=== PATIENT | female | born 1960 | race Caucasian/White ===

== ENCOUNTER 2024-06-08 09:02 | Emergency (ER) | payer BC, SELFPAY ==
[2024-06-08 09:07] VITALS: BP 153/71
--- NOTE | 2024-06-08 09:45 | ED.GENMED ---
History of Present Illness
General
Chief Complaint: Chest Pain
Source: patient
Exam Limitations: none
Time Seen by Provider: 06/08/24 09:45
History of Present Illness
History of Present Illness:
64-year-old female woke up at 3 AM with right posterior shoulder pain rating from the neck with a dullness to the right arm. No chest pain shortness of breath abdominal pain. No history of same. No recent trauma. Patient walks regularly without
issues. Pain has been persistent since 3 AM
Past History
Past History
ED Past Medical History: GERD
ED Past Surgical History: Orthopedic
Social History
Tobacco: Non-smoker
Alcohol: Occasional
Personal:
Review of Systems
Review of Systems
All Other Systems: Not applicable
Constitutional: Denies fever
Respiratory: Reports no symptoms
Cardiac: Denies chest pain
ABD/GI: Reports no symptoms
Phy Exam
Physical Exam
Physical Exam:
GENERAL: Alert and oriented in no apparent distress
EYE: Orbits normal.
NECK: Supple, no spinal tenderness. Good range of motion..
CARDIAC: Regular rate and rhythm without any obvious murmurs.
LUNGS: Clear breath sounds,normal
ABDOMEN: Soft, without focal tenderness or distention
NEUROLOGICAL: Alert and oriented , grossly non-focal
SKIN: Warm and dry, no rash or lesion, no discoloration, skin intact.
MUSCULOSKELETAL: No edema,no deformity.Good color. Patient points to the right upper medial posterior trapezius area as the location of her discomfort. However there is no swelling or point tenderness. She has got good chuck splitter of the right arm.
Good distal pulses. Able to abduct flex extend and abduct the right shoulder.
PSYCH: Normal and appropriate interaction.
Scores
Heart Score for Chest Pain Patients
STEMI patient?: No
History: Slightly or Non-Suspicious
ECG: Normal
Age: >45 - <65 years
Risk Factors: No Risk Factors
Troponin: </= Normal Limit
Heart Score for Chest Pain Patients: 1
Heart Score Risk: 2.5% MACE over next 6 weeks
Course
Orders/Labs/Results
Orders:
Orders
06/08/24 09:04
Electrocardiogram (*1) Urgent
Reason for Study: Chest Pain
EKG- Treatment ONCE
06/08/24 09:57
Add On- LAB Urgent
Tests Added?: lipase
CT Chest Angio W/wo Iv Contras Urgent
Comment:
Reason For Exam: Sudden right upper posterior chest pain
06/08/24 09:58
0.9% Sodium Chloride 500 ml [Nss] 500 ml IV BOLUS
06/08/24 09:59
CMP [Comprehensive Metabolic Panel] Urgent
Complete Blood Count/With Diff Urgent
Lipase Urgent
Troponin I Urgent
06/08/24 12:19
US Abdomen Complete/Upper Urgent
Reason For Exam: Upper back pain. History of gallbladder issues
06/08/24 12:28
Ketorolac [Toradol] 15 mg IV NOW STA
Abnormal Lab Results
06/08/24
09:59
Hct 36.9 L %
(37.0-47.0)
Eosinophils % 7.8 H %
(0-6)
Glucose 110 H mg/dl
(70-99)
Total Bilirubin < 0.1 L mg/dl
(0.2-1.3)
06/08/24 09:59
06/08/24 09:59
Vital Signs
Initial and Last Documented VS:
Initial Vital Signs
Temp Pulse Resp BP Pulse Ox
98.4 F 90 18 153/71 99
06/08/24 09:07 06/08/24 09:07 06/08/24 09:07 06/08/24 09:07 06/08/24 09:07
Last Documented Vital Signs
Temp Pulse Resp BP Pulse Ox
98.4 F 67 18 125/76 98
06/08/24 09:07 06/08/24 12:00 06/08/24 12:00 06/08/24 12:00 06/08/24 12:00
MDM/Problems Addressed
Differential Diagnosis Includes:
. Sudden onset of nontraumatic pain to the right upper posterior back. Most suspicious of a radiculopathy although uncertain why this would come on suddenly
Cardiac needs to be ruled out. Clinically very low suspicion. EKG normal. Dissection with sudden onset of upper back pain. CTA pending. Patient mention she had gallbladder issues however she has absolutely no tenderness in the right upper
quadrant. Feel this is very unlikely.
*Radiology
Radiology exam reviewed: radiology read reviewed (Negative CT. Negative ultrasound)
*EKG
Interpreted by ED Provider?: Yes
Interpretation: normal
Comparison EKG: no changes
Heart Rate: 81
Rate: normal
Rhythm: sinus
Interval: normal interval
QRS Pattern: normal QRS
Ischemia: no ischemia
*Critical Care Note
Total Time (30-74mins, 75-104mins- exclusive of procedures): Not Applicable
Update Note
Update Note:
Patient feels much better after Toradol. Has remained clinically stable. Patient along symptoms and continuous symptoms since 3 AM. Feel second troponin and EKG not warranted. Likely radiculopathy. Stable for discharge to follow-up
ED Attending Note
-
Portions of this chart may have been created with voice recognition software.� Occasional wrong word or��sound alike� substitutions may have occurred due to the inherent limitations of voice recognition software.
Discharge Plan
Departure
Patient Disposition: Home (Routine Discharge)
Date of Disposition: 06/08/24
Time of Disposition: 13:53
Patient with high blood pressure during this ER visit?: Yes
Discharge Problem:
Upper back pain, Suspect radiculopathy
Instructions: Upper Back Pain (DC), BLOOD PRESSURE
Prescriptions:
No Action
ergocalciferol (vitamin D2) 400 UNIT tablet
400 unit PO DAILY
magnesium [Magnacaps] 100 MG capsule
100 mg PO DAILY
cyanocobalamin (vitamin B-12) 1,000 MCG capsule
1,000 mcg PO DAILY
Referrals:
Mounika Padilla DO [Family Provider] - Follow up in 2-3 days
Interventions
Interventions:
*Risk Screen - Suicide Last Done: 06/08/24 09:07
*General Assessment Last Done: 06/08/24 09:07
*Neglect/Abuse Screening Last Done: 06/08/24 09:07
ED- Cardiac Assessment Last Done: 06/08/24 10:14
Discharge Date and Time
Print Language: GUINEAN
[2024-06-08] MEDS: NSS 500 IV (10:06)
[2024-06-08 10:14] VITALS: BMI 26.3
[2024-06-08 10:20] LABS: % Basophils 0.4 % (0-2); % Eosinophils 7.8 % (0-6); % Immature Granulocytes 0.4 % (0-0.5); % Lymphocytes 26.3 % (20.5-51.1); % Monocytes 6.2 % (1.7-9.3); % Neutrophils 58.9 % (42.2-75.2); Absolute Eosinophils 0.4 10^3/uL (0-0.7); Absolute Lymphocytes 1.5 10^3/uL (1.2-3.4); Absolute Monocytes 0.4 10^3/uL (0.1-0.6); Absolute Neutrophils 3.3 10^3/uL (1.4-6.5); Hematocrit 36.9 % (37.0-47.0); Hemoglobin 12.4 g/dL (12.0-16.0); Mean Corp Hgb Conc. 33.6 g/dL (33.0-37.0); Mean Corpuscular Hgb 29.5 pg (27.0-31.0); Mean Corpuscular Volume 87.6 fL (81.0-99.0); Mean Platelet Volume 8.9 fL (7.4-10.4); Nucleated Red Blood Cells % 0 %; Platelet Count 210 10^3/uL (130-400); Red Blood Cell Count 4.21 10^6/uL (4.20-5.40); Red Cell Dist. Width 12.6 % (11.5-14.5); White Blood Cell Count 5.6 10^3/uL (4.8-10.8)
[2024-06-08 10:37] LABS: ALT (SGPT) 22 U/L (0-35); AST (SGOT) 22 U/L (14-36); Albumin 4.3 g/dl (3.5-5.0); Alkaline Phosphatase 89 U/L (38-126); Blood Urea Nitrogen 17 mg/dl (7-17); Calcium 9.4 mg/dl (8.4-10.2); Carbon Dioxide 28 mmol/L (22-30); Chloride 103 mmol/L (98-107); Estimated Creatinine Clearance 78 ml/min; Glucose 110 mg/dl (70-99); Lipase 68 U/L (23-300); Potassium 3.7 mmol/L (3.5-5.1); Sodium 143 mmol/L (135-145); Total Bilirubin < 0.1 mg/dl (0.2-1.3); eGFR > 60.00
[2024-06-08 10:45] LABS: Troponin I < 0.012 ng/ml
[2024-06-08 11:07] VITALS: BP 134/86
[2024-06-08 11:39] VITALS: BP 126/67
[2024-06-08 12:00] VITALS: BP 125/76
[2024-06-08] MEDS: TORADOL 15 MG IV (12:36)
[2024-06-08 14:25] VITALS: BP 116/87
== END 2024-06-08 14:25 | disposition home or self-care (01) ==
LOC: EMR 09:02
PROVIDERS: Student in an Organized Health Care Education/Training Program; EMERGENCY PHYSICIAN Emergency Medicine; FAMILY PHYSICIAN Internal Medicine
DX: M25.511 Pain in right shoulder (principal); M54.6 Pain in thoracic spine; R03.0 Elevated blood-pressure reading, without diagnosis of hypertension; K21.9 Gastro-esophageal reflux disease without esophagitis; Z88.1 Allergy status to other antibiotic agents
CPT/HCPCS: 99285; 96361; 96374; 71275; 76700; 80053; 83690; 84484; 85025; 93005; Q9967